=== PATIENT | male | born 1970 | race Two or more races ===

== ENCOUNTER 2017-04-13 09:16 | Outpatient (CLI) | payer OTHER | END 2017-04-13 09:38 | disposition home or self-care (01) | LOC: RAD 09:16 → RAD 501 09:16 | DX: M17.0 Bilateral primary osteoarthritis of knee (principal) ==

== ENCOUNTER 2020-11-19 10:09 | Emergency (ER) | payer OTHER ==
[~2020-11-19] VITALS: Ht 165.1 cm; Wt 68.9 kg
[2020-11-19] MEDS ORDERED: IVERMECTIN3 MG PO (13:56)
[2020-11-19] MEDS ORDERED: NORFLEX100MG PO (15:26)
== END 2020-11-19 15:30 | disposition home or self-care (01) ==
LOC: ER 10:09
DX: U07.1 COVID-19 (principal)

== ENCOUNTER 2020-11-21 08:00 | Outpatient (CLI) | payer OTHER ==
[~2020-11-21 08:00] MED LIST: IVERMECTIN3 MG PO; NORFLEX100MG PO
== END 2020-11-21 10:00 | disposition home or self-care (01) ==
LOC: ASH CLINIC 08:00
PROVIDERS: ATTEND General Practice
DX: Z23 Encounter for immunization (principal); U07.1 COVID-19